=== PATIENT | female | born 1970 | race Caucasian/White ===

== ENCOUNTER 2022-05-26 18:34 | Emergency (ER) | payer BC ==
[2022-05-26 20:32] VITALS: BP 124/86; PULSE 72
[2022-05-26] MEDS ORDERED: diphenhydrAMINE 50 MG/ML SDV IM ONE (21:09)
[2022-05-26] MEDS ORDERED: Metoclopramide 10 MG/2 ML SDV IM ONE (21:09)
[2022-05-26] MEDS ORDERED: Ketorolac 30 MG/ML SDV IM ONE (21:09)
== END 2022-05-26 22:54 | disposition home or self-care (01) ==
LOC: JD.ED 18:34 → SUPCPDRO 18:34 → JD.ED 22:54
DX: G43.909 Migraine, unspecified, not intractable, without status migrainosus (principal); Z79.899 Other long term (current) drug therapy; Z90.49 Acquired absence of other specified parts of digestive tract
CPT/HCPCS: 96372; 99283; J1200; J1885; J2765; 99282

== ENCOUNTER 2024-01-04 23:52 | Emergency (ER) | payer BC, OTHER ==
[2024-01-05] MEDS: Sodium Chloride 0.9% 1,000 ML IV ONE (00:43)
[2024-01-05] MEDS: Ketorolac 15 MG/ML SDV IVPUSH ONE (00:45)
[2024-01-05] MEDS: Metoclopramide 10 MG/2 ML SDV IVPUSH ONE (00:45)
[2024-01-05 00:49] LABS: BASOPHILS ABSOLUTE AUTO 0.1 K/mm3 (0.0-0.2); BASOPHILS PERCENT AUTO 0.8 % (0.0-1.0); EOSINOPHILS ABSOLUTE AUTO 0.1 K/mm3 (0.0-0.4); EOSINOPHILS PERCENT AUTO 1.6 % (0.0-6.0); HEMATOCRIT 38.8 % (37.0-47.0); HEMOGLOBIN 12.4 gm/dl (12.0-16.0); IMMATURE GRAN ABSOLUTE AUTO 0.02 K/mm3 (0.00-0.05); IMMATURE GRAN PERCENT AUTO 0.3 % (0.0-0.4); LYMPHOCYTES ABSOLUTE AUTO 2.8 K/mm3 (1.0-4.8); LYMPHOCYTES PERCENT AUTO 37.8 % (24.0-44.0); MEAN CORPUSCULAR VOLUME 84.5 fl (83.0-99.0); MEAN PLATELET VOLUME 8.2 fl (9.4-12.3); MONOCYTES ABSOLUTE AUTO 0.5 K/mm3 (0.0-0.8); MONOCYTES PERCENT AUTO 6.8 % (0.0-8.0); NEUTROPHILS ABSOLUTE AUTO 3.9 K/mm3 (1.8-7.7); NEUTROPHILS PERCENT AUTO 52.7 % (41.0-71.0); PLATELET COUNT,PLT 461 K/mm3 (150-400); RED BLOOD CELL COUNT 4.59 M/mm3 (4.10-5.30); WHITE BLOOD CELL COUNT,WBC 7.46 K/mm3 (3.9-11.3)
[2024-01-05 01:12] LABS: A/G RATIO 1.1 (1-2); ALBUMIN 3.2 g/dl (3.4-5.0); ANION GAP 13.4 (5-15); BILIRUBIN TOTAL 0.2 mg/dL (0.2-1.0); BUN/CREATININE RATIO 17.8 (14-18); CALCIUM 9.1 mg/dL (8.5-10.1); CREATININE 0.9 mg/dL (0.55-1.02); EST CRCL DRUG DOSING (CG) 59.8 mL/min; POTASSIUM,K 3.4 mEq/L (3.5-5.1); PROTEIN TOTAL,TP 6.1 g/dl (6.4-8.2)
[2024-01-05 02:19] VITALS: BP 139/84; PULSE 64
== END 2024-01-05 02:12 | disposition home or self-care (01) ==
LOC: JD.ED 23:52
DX: G43.909 Migraine, unspecified, not intractable, without status migrainosus (principal); J06.9 Acute upper respiratory infection, unspecified; Z79.899 Other long term (current) drug therapy
CPT/HCPCS: 36415; 80053; 85025; 96361; 96374; 96375; 99284; J1885; J2765; J7030; 99283